=== PATIENT | female | born 1995 | race Caucasian/White ===

== ENCOUNTER 2018-01-14 15:55 | Emergency (ER) | payer OTHER ==
[2018-01-14 16:02] VITALS: BP 125/79
[2018-01-14] MEDS ORDERED: DOXYCYCLINE 100 MG TABLET PO STA (16:16)
--- NOTE | 2018-01-14 16:18 | ED Physician Documentation ---
History of Present Illness - Stated complaint Stated Complaint: RT THIGH IRRITATION - Chief complaint Chief Complaint: Wound - History obtained from History obtained from: Patient, Family - History of Present Illness Timing: How many days ago (2) Pain level max: 3 Pain level now: 3 Improved by: nothing Worsened by: nothing - Additonal information Additional information: R thigh redness and pain x 2 days. no fevers. States noted small blisters. No recent travel. No insect bites. Review of Systems Constitutional: denies: Fever, Chills GI: denies: Abdominal Pain, Vomiting : denies: Dysuria, Frequency, Hesitancy, Now EGA Skin: denies: Rash Musculoskeletal: denies: Neck pain, Back pain Neurologic: denies: Headache PD PAST MEDICAL HISTORY - Past Medical History Past Medical History: No - Past Surgical History Past Surgical History: No - Present Medications Home Medications: Ambulatory Orders Medication Instructions Recorded Confirmed Doxycycline Hyclate 100 mg PO BID #20 tablet 01/14/18 - Allergies Allergies/Adverse Reactions: Allergies Allergy/AdvReac Type Severity Reaction Status Date / Time No Known Drug Allergies Allergy Verified 01/14/18 16:01 - Living Situation Living Situation: reports: With family Living Arrangement: reports: At home PD ED PE NORMAL - Vitals Vital signs reviewed: Yes - General General: Alert and oriented X 3, No acute distress - Derm Derm: Warm and dry - Extremities Extremities: Other (R thigh - 3cm erythematous area with central small blistering. ) - Neuro Neuro: Alert and oriented X 3 - Psych Psych: Normal mood, Normal affect Results - Vitals Vitals: Vital Signs - 24 hr 01/14/18 15:59 Temperature 36.4 C L Heart Rate 88 Respiratory 18 Rate Blood Pressure 125/79 O2 Saturation 99 Oxygen O2 Source Room air PD MEDICAL DECISION MAKING - ED course Complexity details: reviewed results, re-evaluated patient, considered differential, d/w patient, d/w family ED course: Patient is a 22-year-old female who presents to the emergency department with what appears to be cellulitis of the right thigh. No apparent abscess. No induration or fluctuance. Will place on antibiotics and follow-up closely with her doctor. Patient counseled regarding signs and symptoms for which I believe and urgent re-evaluation would be necessary. Patient with good understanding of and agreement to plan and is comfortable going home at this time This document was made in part using voice recognition software. While efforts are made to proofread this document, sound alike and grammatical errors may occur. Departure - Departure Disposition: 01 Home, Self Care Clinical Impression: Cellulitis Qualifiers: Site of cellulitis: extremity Site of cellulitis of extremity: lower extremity Laterality: right Qualified Code(s): L03.115 - Cellulitis of right lower limb Condition: Good Instructions: ED Infec Skin Cellulitis Follow-Up: your,doctor in 3 days if not better [Other] Prescriptions: Doxycycline Hyclate 100 mg PO BID #20 tablet Comments: Take all antibiotics until gone. Return if you worsen. This should improve over the next 24-48 hours. Discharge Date/Time: 01/14/18 16:41
== END 2018-01-14 16:41 | disposition home or self-care (01) ==
LOC: ED 15:55
DX: L03.115 Cellulitis of right lower limb (principal); S70.321A Blister (nonthermal), right thigh, initial encounter; X58.XXXA Exposure to other specified factors, initial encounter
CPT/HCPCS: 99283; A9270

== ENCOUNTER 2018-01-16 10:31 | Emergency (ER) | payer OTHER ==
[2018-01-16 10:41] VITALS: BP 126/84
[2018-01-16] MEDS ORDERED: MUPIROCIN 2% OINT 1 GM TOP STA (11:47)
[2018-01-16] MEDS ORDERED: ceFAZolin 1 GM VIAL IM STA (11:47)
--- NOTE | 2018-01-16 12:30 | ED Physician Documentation ---
History of Present Illness - Stated complaint Stated Complaint: LEG PX/RECHECK - Chief complaint Chief Complaint: Wound - Additonal information Additional information: hx from pt 22 female while driving back from [place] thinks she got a bug bite on her inner R thigh then developed surrounding cellulitis seen in ER rx doxy, not better tmax 99 denies preg Review of Systems Constitutional: denies: Fever : denies: Now EGA Skin: reports: Rash PD PAST MEDICAL HISTORY - Past Surgical History Past Surgical History: No /[employer]: section - Present Medications Home Medications: Ambulatory Orders Medication Instructions Recorded Confirmed Doxycycline Hyclate 100 mg PO BID #20 tablet 01/14/18 Cephalexin [Keflex] 500 mg PO Q6H #28 capsule 01/16/18 Mupirocin Calcium [Bactroban] 1 applic TP BID #30 cream..g. 01/16/18 Sulfamethox/Trimeth 800/160 1 each PO BID #14 tablet 01/16/18 [Bactrim Ds 800/160] - Allergies Allergies/Adverse Reactions: Allergies Allergy/AdvReac Type Severity Reaction Status Date / Time No Known Drug Allergies Allergy Verified 01/14/18 16:01 - Social History Does the pt smoke?: Yes Smoking Status: Current every day smoker Does the pt drink ETOH?: No Does the pt have substance abuse?: No - Immunizations Immunizations are current?: Yes - POLST Patient has POLST: No PD ED PE NORMAL - Vitals Vital signs reviewed: Yes - Cardiac Cardiac: RRR - Respiratory Respiratory: No respiratory distress, Clear bilaterally - Derm Derm: Other (approx 5 inch diameter cellulitis to inner R thigh, no streaking, in center is a small cluster of aging vesicles with what appears to be clear fluid, no necrosis or crepitus or abscess) Results - Vitals Vitals: Vital Signs - 24 hr 01/16/18 10:36 Temperature 36.1 C L Heart Rate 86 Respiratory 14 Rate Blood Pressure 126/84 H O2 Saturation 98 Oxygen O2 Source Room air - Labs Labs: Laboratory Tests 01/16/18 12:14 POC Whole Bld Glucose 98 PD MEDICAL DECISION MAKING - ED course ED course: failed dozy will change to keflex and bactrim and topical bactroban Departure - Departure Disposition: 01 Home, Self Care Clinical Impression: Cellulitis Qualifiers: Site of cellulitis: extremity Site of cellulitis of extremity: lower extremity Laterality: right Qualified Code(s): L03.115 - Cellulitis of right lower limb Condition: Good Instructions: ED Infec Skin Cellulitis Prescriptions: Cephalexin [Keflex] 500 mg PO Q6H #28 capsule Mupirocin Calcium [Bactroban] 1 applic TP BID #30 cream..g. Sulfamethox/Trimeth 800/160 [Bactrim Ds 800/160] 1 each PO BID #14 tablet Comments: Stop the doxycycline Take the keflex and bactrim instead And apply the bactroban cream twice a day If not better by Monday, please come back to see me in the ER Monday morning Return sooner if worse
== END 2018-01-16 13:00 | disposition home or self-care (01) ==
LOC: ED 10:31
DX: L03.115 Cellulitis of right lower limb (principal); F17.200 Nicotine dependence, unspecified, uncomplicated
CPT/HCPCS: 96372; 99283; A9270